=== PATIENT | female | born 1955 | race Caucasian/White ===

== ENCOUNTER → 2023-04-21 09:21 | Outpatient (REF) | payer OTHER, SELFPAY | LOC: RAD 09:21 | PROVIDERS: ATTENDING PHYSICIAN Physician Assistant Medical | DX: Z00.00 Encounter for general adult medical examination without abnormal findings (principal) | CPT/HCPCS: 77080 ==

== ENCOUNTER → 2023-10-04 13:49 | Outpatient (REF) | payer OTHER, SELFPAY | LOC: WDC 13:49 | PROVIDERS: ATTENDING PHYSICIAN Physician Assistant Medical | DX: Z12.31 Encounter for screening mammogram for malignant neoplasm of breast (principal) | CPT/HCPCS: 77063; 77067 ==

== ENCOUNTER 2024-08-22 18:48 | Observation (INO) | payer OTHER, SELFPAY ==
[2024-08-22] VITALS (11 sets, daily range): BP systolic 131–172; BP diastolic 67–111; BMI 23.7
[2024-08-22 12:46] LABS: % Basophils 1.6 % (0-2); % Eosinophils 3.3 % (0-6); % Immature Granulocytes 0.3 % (0-0.5); % Lymphocytes 13.6 % (20.5-51.1); % Neutrophils 72.2 % (42.2-75.2); Absolute Basophils 0.1 10^3/uL (0-0.2); Absolute Eosinophils 0.2 10^3/uL (0-0.7); Absolute Lymphocytes 0.8 10^3/uL (1.2-3.4); Absolute Monocytes 0.6 10^3/uL (0.1-0.6); Absolute Neutrophils 4.4 10^3/uL (1.4-6.5); Hematocrit 35.8 % (37.0-47.0); Hemoglobin 12.1 g/dL (12.0-16.0); Mean Corp Hgb Conc. 33.8 g/dL (33.0-37.0); Mean Corpuscular Hgb 31.9 pg (27.0-31.0); Mean Corpuscular Volume 94.5 fL (81.0-99.0); Mean Platelet Volume 10.3 fL (7.4-10.4); Nucleated Red Blood Cells % 0 %; Platelet Count 333 10^3/uL (130-400); Red Blood Cell Count 3.79 10^6/uL (4.20-5.40); Red Cell Dist. Width 11.8 % (11.5-14.5); White Blood Cell Count 6.1 10^3/uL (4.8-10.8)
[2024-08-22 12:56] LABS: Lithium 1.4 mmol/L (0.6-1.2)
[2024-08-22 13:01] LABS: ALT (SGPT) 11 U/L (0-35); AST (SGOT) 15 U/L (14-36); Albumin 4.6 g/dl (3.5-5.0); Alkaline Phosphatase 67 U/L (38-126); Blood Urea Nitrogen 18 mg/dl (7-17); Calcium 10.7 mg/dl (8.4-10.2); Carbon Dioxide 25 mmol/L (22-30); Chloride 105 mmol/L (98-107); Glucose 97 mg/dl (70-99); Potassium 3.9 mmol/L (3.5-5.1); Sodium 137 mmol/L (135-145); Total Bilirubin 1.5 mg/dl (0.2-1.3); Total Protein 7.5 g/dl (6.3-8.2); eGFR 49.31
[2024-08-22 13:25] LABS: Urine Albumin 2+ (Neg - Trace); Urine Bilirubin Negative (Negative); Urine Character Clear (Clear); Urine Color Yellow; Urine Glucose Negative (Negative); Urine Ketone Negative (Negative); Urine Leukocyte 1+ (Negative); Urine Nitrite Negative (Negative); Urine Occult Blood 1+ (Negative); Urine Specific Gravity 1.015 (<1.030); Urine Urobilinogen 1+ (Neg - 1+)
[2024-08-22 14:15] LABS: Urine Squamous Cell >30 /LPF (Few)
[2024-08-22 14:18] LABS: Urine Mucus Few
[2024-08-22 14:19] LABS: Urine Red Blood Cell 0-2 /HPF (0-2)
[2024-08-22 14:20] LABS: Urine Bacteria Moderate (Negative)
--- NOTE | 2024-08-22 17:31 | ED.GENMED ---
History of Present Illness
General
Chief Complaint: Abnormal Lab Value
Source: patient
Exam Limitations: none
Time Seen by Provider: 08/22/24 16:17
Nursing documentation reviewed up to this point in time: agreed with
History of Present Illness
History of Present Illness:
Patient sent to ED by psychiatrist for suspected lithium toxicity. She reports diarrhea and metalic taste in mouth for the past month. Now with increasing fatigue. She takes 300mg [place]oy bid. No recent changes in dose. She spoke with her
psychiatrist today who initially recommended decreasing AM dose to 150mg, keeping PM dose 300mg but then advised her to come to ED for labs. SHe reports last lithium level was 2-3 mos ago. SHe doesnt recall actual level but reports result was
normal. Brouoght to ED by spouse for eval.
Past History
Past History
ED Past Medical History: Hypercholesterolemia and Psychiatric (bipolar)
ED Past Surgical History: None
Review of Systems
Review of Systems
Allergies reviewed?: Yes
All Other Systems: ROS reviewed and negative except as documented in HPI and ROS
Constitutional: Reports fatigue
EENT: Reports other (metalic taste)
Respiratory: Reports no symptoms
Cardiac: Reports no symptoms
ABD/GI: Reports diarrhea
: Reports no symptoms
Musculoskeletal: Reports no symptoms
Skin: Reports no symptoms
Neurological: Reports weakness
Psychiatric: Reports no symptoms
Phy Exam
General Physical Exam
General Presentation: mild distress
General age: appears stated age
General Skin: warm and dry
General Habitus: normal
General Mental: alert
Cardiovascular Exam
Cardiovascular Exam: regular rate/rhythm and no edema
Gastrointestinal Exam
Gastrointestinal Exam: non tender and soft
Neurological Exam
Neurological Exam: alert, oriented x3, CN II-XII intact, no motor deficits, no sensory deficits and speech normal
Musculoskeletal Exam
Musculoskeletal Exam: full ROM and neuro vasc intact
Skin Exam
Skin Exam: normal color, warm/dry and no rash
Psychiatric Exam
Psychiatric Exam: normal mood/affect
Course
Orders/Labs/Results
Orders:
Orders
08/22/24 12:15
EKG [Electrocardiogram (*1)] Urgent
Reason for Study: Other
Other Reason for Exam: shaking/lithium
08/22/24 12:16
EKG- Treatment ONCE
08/22/24 12:27
Complete Blood Count/With Diff Urgent
Comprehensive Metabolic Panel Urgent
Leroy Stat
08/22/24 13:12
Urinalysis Reflex To Culture Urgent
Date Specimen was Collected: 08/22/24
Time Specimen was Collected: 12:15
Urine Microscopic Reflex Cult Urgent
Urine Culture Urgent
MILAN Source: U
Specimen Description:
Date Specimen was Collected: 08/22/24
Time Specimen was Collected: 12:15
08/22/24 18:34
Admit/Transfer Patient As Directed
Co-Sign Provider:
Level of Care: Observation services
Assign to:: Telemetry
Physician / Group: ba vasquez
Diagnosis: mild elevated lithium level, RUDY/diarrhea
Reason for Telemetry: Arrhythmia
Date to Stop Telemetry: 08/25/24
Time to Stop Telemetry: 11:00
Reason for Hospitalization: mild elevated lithium level, RUDY/diarrhea
Code Status As Directed
Resuscitation Status: Full Code
08/22/24 18:36
PRN Pain Medication Management As Directed
May give lesser potent ordered pain med per pt: Yes
preference::
Protocol:: Medication orders for pain may be administered in a
manner that supports deferring to patient preference
when the pt is:
- Requesting an ordered lesser potent pain medication.
Least to most potent pain medications are defined
as: acetaminophen < NSAID < tramadol < opioids
(morphine, oxycodone, hydromorphone).
- Requesting a lesser dose of the same medication IF
ORDERED.
- Requesting a less intrusive route of administration
if both routes are prescribed by the provider (PO <
IV).
08/22/24 18:45
0.9% Sodium Chloride 1000 ml [Nss] 1,000 ml IV 1,000 mls/hr
08/25/24 11:00
DC Protocol for Telemetry ONCE
Abnormal Lab Results
08/22/24 08/22/24
12: 13:12
RBC 3.79 L 10^6/uL
(4.20-5.40)
Hct 35.8 L %
(37.0-47.0)
MCH 31.9 H pg
(27.0-31.0)
Absolute Lymphs (auto) 0.8 L 10^3/uL
(1.2-3.4)
Lymphocytes % 13.6 L %
(20.5-51.1)
BUN 18 H mg/dl
(7-17)
Creatinine 1.2 H mg/dL
(0.6-1.0)
Calcium 10.7 H mg/dl
(8.4-10.2)
Total Bilirubin 1.5 H mg/dl
(0.2-1.3)
Ur Occult Blood Reflex 1+ A
(Negative)
Leukocyte Esterase Rfl 1+ A
(Negative)
Urine Bacteria (Reflex) Moderate A
(Negative)
Urine Albumin (Reflex) 2+ A
(Neg - Trace)
L[place]oy 1.4 H mmol/L
(0.6-1.2)
08/22/24 12:27
08/22/24 12:27
Vital Signs
Initial and Last Documented VS:
Initial Vital Signs
Temp Pulse Resp BP Pulse Ox
98.6 F 60 16 172/95 99
08/22/24 12:11 08/22/24 12:11 08/22/24 12:11 08/22/24 12:11 08/22/24 12:11
Last Documented Vital Signs
Temp Pulse Resp BP Pulse Ox
98.6 F 52 16 149/81 98
08/22/24 16:00 08/22/24 21:00 08/22/24 21:00 08/22/24 21:00 08/22/24 20:00
*Pulse Oximetry
SaO2: 100
Oxygen Mode of Delivery: Room air
Patient hypoxic: no
*Critical Care Note
Total Time (30-74mins, 75-104mins- exclusive of procedures): Not Applicable
Update Note
Update Note:
Patient to ED on advise of psychiatrist for suspected lithium toxicity. Reports diarrhea, metalic taste x 1 mos. Now with fatigue. [place] level today is 1.4. Creat of 1.2 noted. I contacted PCP for last lab results on file. They report last
labs were 02/20. At that time lithium was 0.8, BUN 14, Creat 0.98. Case discussed with dr. wang. Recommend admission to hospitalist for IV fluids, monitoring lithium levesl and renal function. Patient and spouse are agreeable to plan.
ED Attending Note
-
Portions of this chart may have been created with voice recognition software.� Occasional wrong word or��sound alike� substitutions may have occurred due to the inherent limitations of voice recognition software.
Discharge Plan
Departure
Patient Disposition: Admit
Date of Disposition: 08/22/24
Time of Disposition: 17:45
Presentation/result/management discussed w/ accepting MD/DO: Hospitalist
Patient with high blood pressure during this ER visit?: No
Condition: Fair
Covid-19: Not Applicable
Discharge Problem:
Elevated lithium level, RUDY (acute kidney injury)
Interventions
Interventions:
*Risk Screen - Suicide Last Done: 08/22/24 12:11
*General Assessment Last Done: 08/22/24 16:58
*Neglect/Abuse Screening Last Done: 08/22/24 12:11
*ED- Fall Risk Assessment Last Done: 08/22/24 16:58
*ED COVID-19 Vaccine History Last Done: 08/22/24 16:58
--- NOTE | 2024-08-22 18:12 | HPS.HSE ---
Family Physician
-
Family Physician: Chiquita Sosa
Chief Complaint
-
Diarrhea, metallic taste, fatigue
History of Present Illness
69-year-old female complaining of diarrhea and metallic taste in her mouth for the past month. She also reports increasing fatigue. She states a couple weeks ago she started with watery diarrhea however it is now pudding like. She reports
speaking with her psychiatrist who recommended decreasing her lithium from 300 mg to 150 mg in the a.m. and keeping 300 mg in the evening however advised her to come to the ER for evaluation of lithium toxicity. She has been on lithium for over 25
years. In the ER she had mild elevation of lithium level at 1.4 with a mild RUDY. She denies blurred vision, halos, headache, chest pain, palpitations, cough, shortness of breath, abdominal pain, nausea, vomiting, current watery diarrhea, urinary
symptoms. She has past medical history of bipolar disorder, HLD, former smoker,Chronic bradycardia with heart rate 50�52.
Medical History
Past Medical History
Past Medical History: Reports Other
Additional Past Medical History:
bipolar disorder
HLD
Former smoker
Chronic bradycardia with heart rate 50�52
Past Surgical History: Reports Other
Additional Past Surgical History:
Tonsillectomy
D&C
Social History
Tobacco: Former Smoker (13 years three-quarter pack a day quit age 31)
Alcohol: Occasional (1-2 drinks a week)
Drug: None
Personal:
Living: With Family
Employment: Retired
Family History
Family History: Other (Mother history depression, Parkinson's disease, sister history depression, maternal grandfather history depression, father living history of hypertension)
Allergies / Home Medications
Allergies reflects when Allergies were last updated in [employer]
Home Medications with original date entered in [employer]
Allergy/Medication List:
Allergies
Allergy/AdvReac Type Severity Reaction Status Date / Time
clindamycin Allergy Hives Verified 08/22/24 12:11
lactose Allergy Unknown Verified 08/22/24 12:11
Home Medications
CoQ-10 1 cap PO DAILY 08/22/24
Essential Oil Supplement 1 cap PO MOWEFR 08/22/24
fluoxetine 20 mg capsule 20 mg PO DAILY 08/22/24
lithium carbonate 300 mg tablet,extended release 300 mg PO BID 08/22/24
loperamide 2 mg capsule 4 mg PO DAILYPRN PRN diarrhea 08/22/24
rosuvastatin 5 mg tablet 2.5 mg PO SUWE 08/22/24
vitamin D3-vitamin K2 1 tab PO DAILY 08/22/24
Review of Systems
-
History Source: Patient
A 12 point ROS was completed and negative except as noted: Yes
Constitutional: Reports Fatigue; Denies Fever
EENT: Reports Other (Metallic taste); Denies Sore Throat
Respiratory: Denies Cough or Trouble Breathing
Cardiac: Denies Chest Pain, Diaphoresis, Palpitations or Syncope
Abdomen/GI: Reports Diarrhea (Pudding-like stool); Denies Abdominal Pain, Nausea or Vomiting
: Denies Dysuria, Frequency, Flank Pain, Incontinence, Difficulty Voiding or Urgency
Musculoskeletal: Denies Joint Pain or Edema
Skin: Denies Itching or Rash
Neurological: Denies Dizzy, Headache or Weakness
Endocrine: Reports No Symptoms
Hematologic/Lymphatic: Reports No Symptoms
Psych: Reports Calm
Physical Exam
Vital Signs
Vital Signs
Temp Pulse Resp BP Pulse Ox
98.6 F 52 19 163/78 100
08/22/24 16:00 08/22/24 16:00 08/22/24 16:00 08/22/24 16:00 08/22/24 17:32
Physical Exam
General: No Apparent Distress, Comfortable and Conversant; No Pain, Fever or Chills
HEENT: NormoCephalic, Anicteric, Moist mucous membranes, PERRLA, [place] Conjunctivae and No Ptosis
Respiratory: Clear; No Wheezes, Rales or Rhonchi
Cardiac: S1/S2 and Bradycardia (Heart rate 50s chronic bradycardia); No Murmur, Rub, Gallop or Peripheral Edema
Breast: Deferred by me
GI: Soft, Non Tender, Non Distended, Normal Bowel Sounds and No Hepatosplenomegaly
Rectal: Deferred by Provider
Genito-urinary: Deferred by me
Musculoskeletal: No Clubbing, No Cyanosis and No Edema
Skin: Warm and Dry; No Rash or Jaundice
Neuro: AO x 3, No Motor Deficits, Nonfocal/grossly intact, Cranial Nerves Intact and No Sensory Deficits; No Slurred Speech, Facial Droop, Tremors or Sedated
Psych: Calm
Laboratory Results
-
08/22/24 12:27
08/22/24 12:27
Laboratory Results
Total Bilirubin 1.5 mg/dl (0.2-1.3) H 08/22/24 12:27
AST 15 U/L (14-36) 08/22/24 12:27
ALT 11 U/L (0-35) 08/22/24 12:27
Alkaline Phosphatase 67 U/L (38-126) 08/22/24 12:27
Data Reviewed
-
Lab Data: Labs Reviewed by me
Impression/Plan
-
Impression/plan:
Observation telemetry
#Elevated lithium level�mild likely due to mild RUDY
#History of bipolar disorder
symptomatic with fatigue diarrhea metallic taste x 1 month
[place] 1.4-has been on lithium x 25 years
-Hold lithium
-Repeat lithium level in a.m.
- On DC would resume at lower dose 150 mg in a.m. and 300 mg at bedtime per her Psychiatry recommendations by patient prior to coming in
- Continue Prozac 20 mg daily
#RUDY likely due to diarrhea
-Creat 1.2/bun 18
-IV NSS 1 L
- IV NSS 100 cc an hour
#Chronic bradycardia asymptomatic
Heart rate 50 patient reports normal 50 to 52 bpm
EKG: Sinus bradycardia 55 bpm, incomplete RBBB QTc 422 MS no previous EKGs
#Former smoker
13 years three-quarter pack quit age 31
#HLD
Continue rosuvastatin 5 mg daily
DVT prophylaxis
SCDs
Full code
[2024-08-22] MEDS: NSS 1000 IV (18:49)
--- NOTE | 2024-08-22 19:05 | W.PN.UPDATE ---
Update Note
Progress Note Update
This is an addendum to H&P written by WASTE HAND Karen Gutierrez
I saw and examined the patient.
The WASTE HAND's note was reviewed and I agree with the note.
Comment:
Ms. Marta Marte is a 69 yo woman with hx bipolar disorder on lithium, HLD, former smoker who presents to the ER complaining of diarrhea and metallic taste in mouth. She has a slightly elevated [place] level.
Triage VS: T 98.5, P 60, RR 16, BP 172/95, SpO2 99%
On exam patient is awake, alert, in no distress. Chest Clear; CV: S1, S2, RR; abdomen benign
LABS: WBC 6.1, Hg 12.1, PLT 333, Na 137, K+ 3.9, CO2 25, BUN 18, Cr 1.2, Ca 10.7, T. Bili 1.5, AST 15, ALT 11, Alk Phos 67, lithium level 1.4
[place] toxicity
-admit to telemetry
-hold [place] this evening and repeat level in AM
-On DC resume [place] at lower dosing (150mg qAM; 300mg qPM recommended by patient's Psychiatrist)
Hx Bipolar
-hold [place] as above
-continue Prozac
RUDY
-in setting of volume depletion and diarrhea, poor appetite with metallic taste
-IVF
DVT PPx
FULL CODE
[2024-08-23] VITALS (9 sets, daily range): BP systolic 109–148; BP diastolic 69–78
[2024-08-23] MEDS: NSS 1000 IV (03:10)
[2024-08-23 06:38] LABS: % Basophils 1.6 % (0-2); % Eosinophils 3.5 % (0-6); % Immature Granulocytes 0.4 % (0-0.5); % Lymphocytes 16.6 % (20.5-51.1); % Monocytes 9.3 % (1.7-9.3); % Neutrophils 68.6 % (42.2-75.2); Absolute Basophils 0.1 10^3/uL (0-0.2); Absolute Eosinophils 0.2 10^3/uL (0-0.7); Absolute Lymphocytes 0.9 10^3/uL (1.2-3.4); Absolute Monocytes 0.5 10^3/uL (0.1-0.6); Absolute Neutrophils 3.8 10^3/uL (1.4-6.5); Hematocrit 32.2 % (37.0-47.0); Hemoglobin 10.7 g/dL (12.0-16.0); Mean Corp Hgb Conc. 33.2 g/dL (33.0-37.0); Mean Corpuscular Hgb 31.5 pg (27.0-31.0); Mean Corpuscular Volume 94.7 fL (81.0-99.0); Mean Platelet Volume 10.2 fL (7.4-10.4); Nucleated Red Blood Cells % 0 %; Platelet Count 295 10^3/uL (130-400); Red Cell Dist. Width 11.6 % (11.5-14.5); White Blood Cell Count 5.5 10^3/uL (4.8-10.8)
[2024-08-23 07:10] LABS: ALT (SGPT) < 10 U/L (0-35); AST (SGOT) 13 U/L (14-36); Albumin 3.7 g/dl (3.5-5.0); Alkaline Phosphatase 58 U/L (38-126); Blood Urea Nitrogen 12 mg/dl (7-17); Calcium 10.2 mg/dl (8.4-10.2); Carbon Dioxide 23 mmol/L (22-30); Chloride 111 mmol/L (98-107); Estimated Creatinine Clearance 63 ml/min; Glucose 83 mg/dl (70-99); Lithium 1.3 mmol/L (0.6-1.2); Potassium 4.1 mmol/L (3.5-5.1); Sodium 139 mmol/L (135-145); Total Bilirubin 1.3 mg/dl (0.2-1.3); Total Protein 6.2 g/dl (6.3-8.2); eGFR > 60.00
--- NOTE | 2024-08-23 07:41 | W.PN.HOSP.TC ---
Today's Communication/Plan
-
see A/P
Assessment / Plan
Assessment / Plan
HPI: 69 yo woman with PMH bipolar disorder on lithium, HLD, former smoker, who presented to the ER complaining of diarrhea and metallic taste in mouth. She has a slightly elevated [place] level.
A/P:
# [place] toxicity
Cont telemetry monitoring
hold [place] and repeat level today at 1.3, check repeat level tmr
On DC resume [place] at lower dosing (150mg qAM; 300mg qPM recommended by patient's Psychiatrist)
of note, diarrhea has resolved
# Hx Bipolar
hold [place] as above
continue Prozac
# RUDY, resolved
observe off additional IVF
DVT PPx: SCD
FULL CODE
Anticipated Discharge: Within 24 hours
Subjective/Interval History
-
Date of Service: August 23, 2024
Objective Data
-
Labs:
Laboratory Results
08/23/24
06:21
WBC 5.5
Hgb 10.7 L
Hct 32.2 L
Plt Count 295
Sodium 139
Potassium 4.1
Chloride 111 H
Carbon Dioxide 23
BUN 12
Creatinine 0.9
Glucose 83
Calcium 10.2
Total Bilirubin 1.3
AST 13 L
ALT < 10
Alkaline Phosphatase 58
Vital Signs:
Vital Signs
Temp Pulse Resp BP Pulse Ox
36.7 C 50 18 148/75 98
08/23/24 03:50 08/23/24 03:50 08/23/24 03:50 08/23/24 03:50 08/23/24 03:50
I&O
08/22/24 08/23/24 08/24/24
06:59 06:59 06:59
Intake Total 880 / 880
Balance
Review of Systems
-
History Source: Patient
All other systems: Reviewed and negative
Abdomen/GI: Denies Abdominal Pain or Diarrhea
Physical Exam
-
General: Well Developed, Well Nourished, No Apparent Distress, Comfortable and Conversant; Negative Respiratory Distress
HEENT: Normocephalic, Atraumatic, Nose Appears Normal and Ears Appear Normal; Negative Oxygen
Respiratory: Clear to Auscultation and Non Labored Respirations; Negative Accessory Resp Muscle Use
Cardiac: Regular Rhythm and S1/S2
GI: Soft, Nontender, Nondistended and Normal Bowel Sounds
Skin: Warm and Dry
Neuro: Awake, Alert, Oriented and AO x 3
Psych: Calm and Intact Judgement/Insight
Data Reviewed
-
Labs: Labs Reviewed by me and Discussed with Patient
--- NOTE | 2024-08-23 09:57 | PTCARENOTE ---
Pt with resting HR of 48, made aware, no new orders at this time.
--- NOTE | 2024-08-23 13:05 | CM ---
CM following re: discharge planning.
Reviewed pt's chart, met with pt.
Pt is a 69 year old female, admitted with OBS status and primary dx of [place] toxicity. OBS status explained to the pt, pt expressed her understanding, declined to sign, has a copy. [place] letter placed on chart.
Pt reports she lives with 2SH, 1 step to enter, has supportive son. 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 No DME, VN or SNF history.
PCP: Chiquita Warner
Pharmacy: [facility]
D/c plan: home with anticipated no needs. to transport at discharge.
CM will follow with discharge plan updates as hospitalization progresses
[2024-08-23 18:49] LABS: Hepatitis C Antibody Negative (Negative)
[2024-08-24 03:10] VITALS: BP 129/75
[2024-08-24 05:52] VITALS: BMI 22.9
[2024-08-24 07:00] VITALS: BP 135/75
[2024-08-24 08:05] LABS: Blood Urea Nitrogen 9 mg/dl (7-17); Calcium 10.2 mg/dl (8.4-10.2); Carbon Dioxide 23 mmol/L (22-30); Chloride 110 mmol/L (98-107); Estimated Creatinine Clearance 63 ml/min; Glucose 88 mg/dl (70-99); Lithium 0.8 mmol/L (0.6-1.2); Potassium 4.2 mmol/L (3.5-5.1); Sodium 140 mmol/L (135-145); eGFR > 60.00
[2024-08-24 11:00] VITALS: BP 153/74
--- NOTE | 2024-08-24 13:01 | W.PN.HOSP.TC ---
Addendum entered and electronically signed by Irina Durán MD 08/24/24 14:17:
total DC time 36 min
Original Note:
Today's Communication/Plan
-
DC home today
Assessment / Plan
Assessment / Plan
HPI: 69 yo woman with PMH bipolar disorder on lithium, HLD, former smoker, who presented to the ER complaining of diarrhea and metallic taste in mouth. She has a slightly elevated [place] level.
A/P:
# [place] toxicity
Cont telemetry monitoring
[place] level today at 0.8
can resume [place] at lower dosing (150mg qAM; 300mg qPM recommended by patient's Psychiatrist) following discharge
of note, diarrhea has resolved
# Hx Bipolar
cont reduced [place] as above
Check level in 1 week, result to PCP/Psych
continue Prozac
# RUDY, resolved
observe off additional IVF
DVT PPx: SCD
FULL CODE
Anticipated Discharge: Today
Subjective/Interval History
-
Date of Service: August 24, 2024
Objective Data
-
Labs:
Laboratory Results
08/24/24
07:01
Sodium 140
Potassium 4.2
Chloride 110 H
Carbon Dioxide 23
BUN 9
Creatinine 0.9
Glucose 88
Calcium 10.2
Vital Signs:
Vital Signs
Temp Pulse Resp BP Pulse Ox
36.7 C 55 20 153/74 98
08/24/24 11:00 08/24/24 11:00 08/24/24 11:00 08/24/24 11:00 08/24/24 11:00
I&O
08/23/24 08/24/24 08/25/24
06:59 06:59 06:59
Intake Total 880 / 880 980 / 980
Balance 880 / 880 980 / 980
Review of Systems
-
History Source: Patient
All other systems: Reviewed and negative
Abdomen/GI: Denies Abdominal Pain or Diarrhea
Physical Exam
-
General: Well Developed, Well Nourished, No Apparent Distress, Comfortable and Conversant; Negative Respiratory Distress
HEENT: Normocephalic, Atraumatic, Nose Appears Normal and Ears Appear Normal; Negative Oxygen
Respiratory: Clear to Auscultation and Non Labored Respirations; Negative Accessory Resp Muscle Use
Cardiac: Regular Rhythm and S1/S2
GI: Soft, Nontender, Nondistended and Normal Bowel Sounds
Skin: Warm and Dry
Neuro: Awake, Alert, Oriented and AO x 3
Psych: Calm and Intact Judgement/Insight
Data Reviewed
-
Labs: Labs Reviewed by me and Discussed with Patient
--- NOTE | 2024-08-24 13:30 | CM ---
CM following re: discharge planning.
Reviewed pt's chart, met with pt.
Discharge order noted. Pt is aware and she stated her will transport home. Pt still OBS status.
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
No after care VN services indicated.
D/c plan: home no needs. to transport
--- NOTE | 2024-08-24 14:07 | W.DCSUMMARY ---
Discharge Summary
Discharge Data
Date of Admission: 08/22/24
Date of Discharge: 08/24/24
-
Pending Results: No
Hospital Course
Principal Diagnosis:
[place] toxicity
Chronic Diagnoses:�
History of Bipolar mood disorder
Consultations:�
None
Procedures:�
None
Clinical course:�
This is a 69 yo woman with PMH bipolar disorder on lithium, HLD, former smoker, who presented to the ER complaining of diarrhea and metallic taste in mouth. She has a slightly elevated [place] level.
Problem 1:
[place] toxicity
Her lithium was high at 1.4 on admission, and trended down to 0.8.
Since her lithium level has normalized, she can resume lower dose lithium at 150 mg in the morning and 300 mg in the evening (from prior to admission 300 mg twice daily) per patient's psychiatrist following discharge going forward.
She can check repeat lithium level in 1 week with result to her PCP/psychiatrist.
As for the rest of her medical problems, they were stable during her hospital stay.
Discharge Plan
-
Patient Disposition: Home (Routine Discharge)
Discharge Diagnosis/Procedures: [place] toxicity (high lithium level)
Condition: Fair
Diet: As tolerated
Activity: As tolerated
Driving Restrictions: As prior to admission
Blood Work: [place] level in 1 week, result to PCP/psychiatrist
Referrals:
Chiquita Sosa PA-C [Family Provider, Family Practice] - in less than 1 week
Additional Discharge Medication Instructions: take [place] at lower dose: 150 mg in the morning, and 300 mg at night
Prescriptions:
New
lithium carbonate 150 mg capsule
150 mg PO DAILY Qty: 30 0RF
Continued
rosuvastatin 5 mg Tablet
2.5 mg PO SUWE
loperamide 2 mg Capsule
4 mg PO DAILYPRN PRN (Reason: diarrhea)
fluoxetine 20 mg capsule
20 mg PO DAILY
CoQ-10
1 cap PO DAILY
Essential Oil Supplement
1 cap PO MOWEFR
Patient Comments:
08/22/2024, [employer] brand.
vitamin D3-vitamin K2
1 tab PO DAILY
Changed
lithium carbonate 300 mg tablet extended release
300 mg PO HS Qty: 0 0RF
Discharge Orders:
Discharge Patient (As Directed); Ordered 08/24/24
Ordered By: Irina Durán
Discharge Date and Time
Print Language: WOLOF
== END 2024-08-24 14:33 | disposition home or self-care (01) ==
LOC: 2 NORTH 18:48
PROVIDERS: Clinical Nurse Specialist Family Health; ADMITTING PHYSICIAN Student in an Organized Health Care Education/Training Program; ATTENDING PHYSICIAN Internal Medicine; EMERGENCY PHYSICIAN Emergency Medicine; FAMILY PHYSICIAN Physician Assistant Medical
DX: R19.7 Diarrhea, unspecified (principal); N17.9 Acute kidney failure, unspecified; T43.595A Adverse effect of other antipsychotics and neuroleptics, initial encounter; E86.9 Volume depletion, unspecified; F31.9 Bipolar disorder, unspecified; E78.00 Pure hypercholesterolemia, unspecified; R00.1 Bradycardia, unspecified; Z79.899 Other long term (current) drug therapy; Z82.49 Family history of ischemic heart disease and other diseases of the circulatory system; Z87.891 Personal history of nicotine dependence
CPT/HCPCS: 80048; 80053; 80178; 81003; 81015; 85025; 86803; 87086; 93005; 99285; G0378